=== PATIENT | female | born 1935 | race Caucasian/White ===

== ENCOUNTER 2016-12-17 18:41 | Inpatient (IN) | payer MEDICARE, OTHER ==
[~2016-12-17] VITALS: Ht 165.1 cm; Wt 77.5 kg
--- NOTE | ~2016-12-17 | PRECARD ---
[facility]&P [facility] [address] [facility] [place] [address] NAME: AIMEE BUSCH : 39 STATUS : ADM Tarah PAT#: [id number] AGE: 81 ADM/REG DATE : 12/17/16 MR#: [id number] REPORT SERV DATE: 12/18/16 DICTATED BY: HÉCTOR CHACKO JR. DATE: 12/18/16 REPORT STATUS : Draft TRANSCRIBED BY: WILL DATE: 12/18/16 DATE OF ADMISSION: 12/17/2016 CHI: Dr. Santacruz. CHIEF COMPLAINT: Unstable angina. HISTORY OF PRESENT ILLNESS: A 81-year-old white female with extensive cardiac history. On 12/16/2016, she had onset of nausea and diaphoresis. No vomiting. Near syncope followed by chest tightness which has been progressive since that time until she reported to the emergency room last evening. This morning she is chest pain free. Two troponins have been negative for myocardial necrosis. An EKG is nondiagnostic with permanent pacemaker. 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 There was 70% ostial RCA lesion supplying the posterolateral branch. The posterior descending branch was supplied by patent vein graft. The muscogee circumflex was closed ostially and there was a close saphenous vein graft to the obtuse marginal. She has a history of complete heart block and has a Biotronik permanent pacemaker. She has treated hypertension and insulin-dependent type 2 diabetes mellitus. She has had a cholecystectomy in the past. She has a loud carotid bruit on exam today, but no TIA or stroke symptoms. ALLERGIES: NO KNOWN DRUG ALLERGIES. NO CONTRAST ALLERGY. HOME MEDICATIONS: Reviewed and modified, otherwise no additions to what is dictated. SOCIAL HISTORY: Nonsmoker. No illicit drugs. FAMILY HISTORY: Noncontributory. REVIEW OF SYSTEMS: As above. All else negative and noncontributory. OTHER PERTINENT LABORATORY STUDIES: Include total cholesterol elevation at 203 with LDL 109 on 20 mg of Lipitor daily. Potassium 4.0, BUN and creatinine of 20 and 1.35 respectively. PHYSICAL EXAMINATION: VITAL SIGNS: Blood pressure 155/71, pulse is 80 and regular, respirations 18, and afebrile. HEENT: No xanthelasma. NECK: Head to neck left carotid bruit. LUNGS: Clear to auscultation and percussion. COR: Head to heart soft systolic ejection murmur at base. No gallop or rub audible. H&P [address] [address] NAME: AIMEE BUSCH : 39 STATUS : ADM Tarah PAT#: [id number] AGE: 81 ADM/REG DATE : 12/17/16 MR#: [id number] REPORT SERV DATE: 12/18/16 DICTATED BY: HÉCTOR CHACKO JR. DATE: 12/18/16 REPORT STATUS : Draft TRANSCRIBED BY: WILL DATE: 12/18/16 ABD: Soft, nontender, no hepatosplenomegaly, no mass. EXT: Without edema or pulse deficit. MS: Back without spine or costovertebral angle tenderness. NEURO: Symmetric findings. IMPRESSION: Unstable angina. Previously stable angina history until two days ago. Associated nausea, diaphoresis, etc favors a RCA culprit lesion, but she has a potentially significant left main and LAD in-stent lesion previously described. In addition, there is a loud left carotid bruit. We will check an ultrasound in addition to ordering a coronary arteriogram graft injection with possible PCI this afternoon. Procedure discussed including risks and benefits. All questions were answered. KARYNA/WLIL Héctor Chacko Jr., M.D. / [id number] CC: Bhaskar Munguia M.D.
[2016-12-17 19:50] LABS: BASOPHILS 0.3 %; BASOPHILS ABSOLUTE 0.03 10/3/uL (0.0-0.16); EOSINOPHILS 1.3 %; EOSINOPHILS ABSOLUTE 0.15 10/3/uL (0.0-0.53); HEMATOCRIT 39.7 % (36.0-48.0); HEMOGLOBIN 13.1 g/dL (12.0-16.0); IMMATURE GRANULOCYTES 0.3 %; IMMATURE GRANULOCYTES ABSOLUTE 0.03 10/3/uL (0.0-0.11); LYMPHOCYTES 36.1 %; LYMPHOCYTES ABSOLUTE 4.03 10/3/uL (0.67-4.30); MEAN CORPUSCULAR HEMOGLOB 29.5 pg (26.0-34.0); MEAN CORPUSCULAR VOLUME 89.4 fL (80-100); MEAN PLATELET VOLUME 9.1 fL (9.2-13.0); MONOCYTES 10.7 %; MONOCYTES ABSOLUTE 1.19 10/3/uL (0.21-1.20); NEUTROPHILS 51.3 %; NEUTROPHILS ABSOLUTE 5.72 10/3/uL (2.02-8.40); PLATELET COUNT 344 10/3/uL (150-400); RBC DISTRIBUTION WIDTH 12.1 % (12.0-16.0); RED CELL COUNT 4.44 10/6/uL (4.0-5.6); WHITE BLOOD CELLS 11.2 10/3/uL (4.5-10.5)
[2016-12-17 19:52] LABS: MANUAL DIFF NO %
[2016-12-17 20:01] LABS: PROTIME (NOT ORD) 13.1 SEC (12.0-14.5)
[2016-12-17 20:02] LABS: PARTIAL THROMBO TIME 26.2 SEC (22.5-37.2)
[2016-12-17 20:06] LABS: BUN (BLOOD UREA NITROGEN) 20 MG/DL (6-23); CALCIUM, SERUM 8.9 MG/DL (8.5-10.4); CHEST PAIN PROFILE TAT 0 Hrs 20 Mins; CHLORIDE, SERUM 107 MMOL/L (96-112); CO2 (CARBON DIOXIDE) 24 MMOL/L (24-34); CREATININE 1.35 MG/DL (0.55-1.02); GFR AFRICAN AMERICAN 43 ML/MIN (>=60); GFR NON AFRICAN AMERICAN 37 ML/MIN (>=60); SODIUM, SERUM 140 MMOL/L (135-148); TROPONIN I <0.02 NG/ML (<0.05)
[2016-12-17 20:08] LABS: GLUCOSE, SERUM 84 MG/DL (60-99)
[2016-12-17] MEDS ORDERED: NORV10 PO (20:58)
[2016-12-17] MEDS ORDERED: LANTUS SC (20:58)
[2016-12-17] MEDS ORDERED: LIPITOR40 PO (20:59)
[2016-12-17] MEDS ORDERED: COREG12 PO (20:59)
[2016-12-17] MEDS ORDERED: PRIN20 PO (21:00)
[2016-12-17] MEDS ORDERED: STARLIX60 PO (21:00)
[2016-12-17] MEDS ORDERED: NOVOLOG (21:02)
[2016-12-17] MEDS ORDERED: PLAVIX PO (21:02)
[2016-12-17] MEDS ORDERED: ISORDIL20 PO (21:03)
[2016-12-17] MEDS ORDERED: NITROSTAT0.4 MG SL (21:04)
[2016-12-17] MEDS ORDERED: ATV.5 PO (21:04)
[2016-12-17] MEDS ORDERED: HALF81 PO (21:11)
[2016-12-17] MEDS ORDERED: RAN500 PO (21:12)
[2016-12-18 03:26] LABS: BASOPHILS 0.3 %; BASOPHILS ABSOLUTE 0.03 10/3/uL (0.0-0.16); EOSINOPHILS 1.5 %; EOSINOPHILS ABSOLUTE 0.16 10/3/uL (0.0-0.53); HEMATOCRIT 40.1 % (36.0-48.0); HEMOGLOBIN 13.4 g/dL (12.0-16.0); IMMATURE GRANULOCYTES 0.3 %; IMMATURE GRANULOCYTES ABSOLUTE 0.03 10/3/uL (0.0-0.11); LYMPHOCYTES 39.9 %; LYMPHOCYTES ABSOLUTE 4.23 10/3/uL (0.67-4.30); MEAN CORPUS HGB CONC 33.4 g/dL (32.0-36.0); MEAN CORPUSCULAR HEMOGLOB 30.1 pg (26.0-34.0); MEAN CORPUSCULAR VOLUME 90.1 fL (80-100); MEAN PLATELET VOLUME 9.3 fL (9.2-13.0); MONOCYTES 10.3 %; MONOCYTES ABSOLUTE 1.09 10/3/uL (0.21-1.20); NEUTROPHILS 47.7 %; NEUTROPHILS ABSOLUTE 5.06 10/3/uL (2.02-8.40); PLATELET COUNT 378 10/3/uL (150-400); RBC DISTRIBUTION WIDTH 11.8 % (12.0-16.0); RED CELL COUNT 4.45 10/6/uL (4.0-5.6); WHITE BLOOD CELLS 10.6 10/3/uL (4.5-10.5)
[2016-12-18 03:27] LABS: MANUAL DIFF NO %
[2016-12-18 03:43] LABS: CHOL/HDL RATIO(NOT ORDER) 4.1 (0-5); CHOLESTEROL 203 MG/DL (< 200); HDL CHOLESTEROL 50 MG/DL (> 49); LDL CHOLESTEROL 109 MG/DL (< 130); NON-HDL CHOLESTEROL 153 MG/DL (< 160); SGPT(ALT) 21 U/L (5-65); TRIGLYCERIDE 221 MG/DL (< 150); TROPONIN I <0.02 NG/ML (<0.05)
[2016-12-18 08:44] LABS: ASCORBIC ACID (UR NOT ORDER) NEG (NEG); BILIRUBIN, URINE NEGATIVE (NEG); KETONE, URINE TRACE MG/DL (NEG); LEUKOCYTE ESTERASE(NOT OR NEG (NEG); WBC (NOT ORDERED) (RFLEX) 1 (0-5)
[2016-12-19 04:45] LABS: BASOPHILS 0.3 %; BASOPHILS ABSOLUTE 0.03 10/3/uL (0.0-0.16); EOSINOPHILS 1.2 %; EOSINOPHILS ABSOLUTE 0.12 10/3/uL (0.0-0.53); HEMATOCRIT 36.2 % (36.0-48.0); HEMOGLOBIN 12.1 g/dL (12.0-16.0); IMMATURE GRANULOCYTES 0.2 %; IMMATURE GRANULOCYTES ABSOLUTE 0.02 10/3/uL (0.0-0.11); LYMPHOCYTES 33.9 %; LYMPHOCYTES ABSOLUTE 3.45 10/3/uL (0.67-4.30); MANUAL DIFF NO %; MEAN CORPUS HGB CONC 33.4 g/dL (32.0-36.0); MEAN CORPUSCULAR HEMOGLOB 30.1 pg (26.0-34.0); MEAN PLATELET VOLUME 9.4 fL (9.2-13.0); MONOCYTES 10.4 %; MONOCYTES ABSOLUTE 1.06 10/3/uL (0.21-1.20); PLATELET COUNT 313 10/3/uL (150-400); RBC DISTRIBUTION WIDTH 12.1 % (12.0-16.0); RED CELL COUNT 4.02 10/6/uL (4.0-5.6); WHITE BLOOD CELLS 10.2 10/3/uL (4.5-10.5)
[2016-12-19 05:04] LABS: BUN (BLOOD UREA NITROGEN) 16 MG/DL (6-23); CALCIUM, SERUM 8.5 MG/DL (8.5-10.4); CHLORIDE, SERUM 108 MMOL/L (96-112); CK-MB 2.1 NG/ML; CO2 (CARBON DIOXIDE) 21 MMOL/L (24-34); CPK 90 U/L (0-200); CREATININE 0.83 MG/DL (0.55-1.02); GFR AFRICAN AMERICAN 78 ML/MIN (>=60); GFR NON AFRICAN AMERICAN 67 ML/MIN (>=60); GLUCOSE, SERUM 175 MG/DL (60-99); POTASSIUM, SERUM 3.7 MMOL/L (3.5-5.3); SODIUM, SERUM 139 MMOL/L (135-148)
== END 2016-12-19 17:00 | disposition home or self-care (01) | DRG 247 ==
LOC: ER 18:41 → SSU1 21:25 → CDU1 21:25 → CDU2 21:25 → SSU1 12-18 17:00
PROVIDERS: Emergency Medicine; Internal Medicine Cardiovascular Disease; Obstetrics & Gynecology
PROC: 027135Z Dilation of Coronary Artery, Two Arteries with Two Drug-eluting Intraluminal Devices, Percutaneous Approach (ICD-10-PCS; principal; 2016-12-18)
PROC: B2111ZZ Fluoroscopy of Multiple Coronary Arteries using Low Osmolar Contrast (ICD-10-PCS; 2016-12-18)
PROC: B2131ZZ Fluoroscopy of Multiple Coronary Artery Bypass Grafts using Low Osmolar Contrast (ICD-10-PCS; 2016-12-18)
PROC: 4A023N7 Measurement of Cardiac Sampling and Pressure, Left Heart, Percutaneous Approach (ICD-10-PCS; 2016-12-18)
PROC: B2151ZZ Fluoroscopy of Left Heart using Low Osmolar Contrast (ICD-10-PCS; 2016-12-18)
DX: I25.110 Atherosclerotic heart disease of native coronary artery with unstable angina pectoris (principal); E11.9 Type 2 diabetes mellitus without complications; I10 Essential (primary) hypertension; Z95.0 Presence of cardiac pacemaker; Z95.1 Presence of aortocoronary bypass graft; Z79.4 Long term (current) use of insulin; R09.89 Other specified symptoms and signs involving the circulatory and respiratory systems
CPT/HCPCS: 71020; 80048; 80061; 81001; 82550; 82553; 82962; 83735; 84460; 84484; 85025; 85610; 85730; 92978; 93005; 93459; 93880; 99152; 99153; 99285; A9270-GY; C1725; C1753; C1760; C1769; C1874; C9600; J0360; J0583; J2250; J2405; J3010; Q9967